=== PATIENT | female | born 1935 | race Caucasian/White ===

== ENCOUNTER 2017-01-13 11:28 | Emergency (ER) | payer MEDICARE, BC ==
[~2017-01-13] VITALS: Ht 180.3 cm; Wt 70.0 kg
[~2017-01-13 11:28] MED LIST: ACET500T67 PO; AMIT10TA92 PO; ASPI-558 PO; CALC-494 PO; CHOL10003 PO; FAMO20TA8 PO; LACT1CAP67 PO; LATA2.5D7 BOTH EYES; MESA800T PO; MULT-934 PO; PROP20TA7 PO; SERT50TA12 PO; [UNRECOGNIZED DRUG - CODE] PO
[2017-01-13 11:30] VITALS: Ht 180.3 cm; Wt 70.0 kg
--- NOTE | 2017-01-13 11:32 | NUR ---
PROVIDER DR PAULSON IN ROOM. PATIENT REMOVED FROM SPINE USING APPROPRIATE LOG-ROLLING TECHNIQUE USING 3 PEOPLE. C COLLAR LEFT IN PLACE.
[2017-01-13] MEDS ORDERED: CLOB15OI3 TOP (11:49)
--- NOTE | 2017-01-13 12:27 | NUR ---
BACK FROM CT THIS RN ACCOMPANYING.
--- NOTE | 2017-01-13 12:39 | DI ---
Indication: ITS.REASON: Trauma / struck head/ unknown if lost consciousness PROCEDURE: CT HEAD W/O CONTRAST: Encounter: Initial Comparison: December 09, 2013 Technique: Axial CT images through the head were performed without contrast. Iterative Reconstruction dose reducing technique was utilized. FINDINGS: Atrophy. The ventricles are unchanged. There is no evidence of acute intracranial hemorrhage, midline displacement, or mass effect. There are scattered areas of low attenuation in the white matter which most likely represent changes of chronic microvascular ischemia. The CT attenuation of the brain parenchyma is otherwise normal within the cerebellum, brain stem, and cerebral hemispheres. The tympanic cavities and mastoid air cells are free of appreciable disease. There are no definite fractures of the skull base, calvarium, or visualized portion of the midface. IMPRESSION: No CT evidence of acute traumatic intracranial injury. .
--- NOTE | 2017-01-13 12:43 | DI ---
Indication: ITS.REASON: trauma / neck pain PROCEDURE: CT CERVICAL SPINE W/O CONTRAST: Encounter: Initial Comparison: CT chest dated November 26, 2008 Technique: Axial CT images through the cervical spine were performed without contrast. Coronal and sagittal reformatted images were also obtained. Automated Exposure Control and Iterative Reconstruction dose reducing techniques were utilized. FINDINGS: The alignment of the cervical spine is normal. Multilevel degenerative changes are present. There is no evidence of acute fracture or subluxation of the cervical spine. The atlantoaxial articulation, dens, and upper cervical spine demonstrate no subluxation. Benign nodule left upper lobe, stable since 2008. Bilateral apical pleural thickening and scarring. IMPRESSION: No acute traumatic abnormality of the cervical spine. .
--- NOTE | 2017-01-13 12:46 | DI ---
Indication: ITS.REASON: trauma / thoracic pain PROCEDURE: CT THORACIC SPINE W/O CONTRAST: Encounter: Initial Comparison: CT chest dated November 2008 Technique: Axial noncontrast CT imaging of the thoracic spine was performed with coronal and sagittal two-dimensional reformats. Automated Exposure Control and Iterative Reconstruction dose reducing techniques were utilized. FINDINGS: Alignment of the thoracic spine is normal for the patient's age. There are minimal, age appropriate, degenerative changes within the intervertebral disk and facet joints in the thoracic spine. No fractures are evident in the thoracic spine. The vertebral bodies and facet joints are normally aligned. There is no evidence of significant spinal stenosis, foraminal compromise, epidural hematoma, or significant disk herniation. Stable benign left upper lobe pulmonary nodule. IMPRESSION: No acute traumatic abnormality of the thoracic spine. .
--- NOTE | 2017-01-13 12:48 | NUR ---
C COLLAR TAKEN OFF PER DR PAULSON. C SPINE CLEAR. CALLED XRAY.
--- NOTE | 2017-01-13 12:48 | ERPDOC ---
Departure Disposition Decision Date: Jan 13, 2017 Disposition Decision Time: 14:49 Disposition: 01 DISCHARGED HOME, SELF-CARE Impression Impression Impression: Primary Impression: Fracture, humerus, neck Encounter type: initial encounter Fracture type: closed Laterality: left Qualified Codes: S42.212A - Unspecified displaced fracture of surgical neck of left humerus, initial encounter for closed fracture Severity: Moderate Condition: Improved Seen By: Physician only Referrals: LORY FERNANDEZ MD (Family) INÉS LIRIANO MD Call today or Tomorrow, Ask for [facility] Patient Instructions: Proximal Humerus Fracture (ED) Problems/Meds/Labs Reviewed?: Yes Medications reviewed and manag: Yes Follow up care ordered?: Yes Mental Status: Alert, Oriented Scripts Ondansetron (Zofran Odt) 4 Mg Tab.rapdis 4 MG PO Q4-6H for NAUSEA, #12 TAB 0 Refills Oral Disintegrating Tablet Prov: MAWXELL PAULSON 01/13/17 Oxycodone HCl/Acetaminophen (Percocet 5-325 mg Tablet) 5-325 Tablet 1-2 TAB PO Q4-6H Y for PAIN, #20 TAB 0 Refills Take 1 tablet, by mouth, every 4 hours as needed for pain. Prov: MAXWELL PAULSON 01/13/17 HPI - Fall/Injury General Chief Complaint: Fall Stated Complaint: FELL, L SHOULDER PAIN Time Seen by Provider: 11:41 Source: patient (Patient apparently fell from a treadmill, striking her head and left shoulder. Patient is unsure if she lost conscousness, but complains of Head, Neck, Thoracic, and Left shoulder pain. No obvious trauma is noted.) Exam Limitations: no limitations HPI - Fall/Injury Occurred At: home Onset: Changing over time Duration: 1-3 hrs Pain Scale: Now & Worst: 5/10 Severity: mild Injuries/Pain Location: head, neck, upper extremity, back Context: slipped Loss of Consciousness: unsure Modifying Factors: IMPROVES WITH: immobilization, rest, WORSE WITH: movement Associated Symptoms: confusion (Initially, but has resolved), DENIES: abdominal pain, chest pain, dizziness, headache, lightheadedness, muscle spasms , nausea/vomiting, neck pain, ringing in ears, seizures, shortness of breath, slurred speech, trouble walking, vision changes Hx of Similar Symptoms: No Allergies: Coded Allergies: metoclopramide (Verified Allergy, Intermediate, WEAKNESS, 01/13/17) weak, shaking, dyspnea, chest tightness codeine (Verified Allergy, Mild, DIZZINESS, 01/13/17) prednisone (Verified Allergy, Mild, NAUSEA, SICK FEELING, 01/13/17) ceftriaxone sodium (Verified Allergy, Unknown, 01/13/17) Past History Patient Surgical History Appy Tonsillectomy heart Cath Past Medical History Metabolic: cancer, hypercholesterolemia, hypertension ENMT: sinusitis Cardiac: CAD, [place] Respiratory: pneumonia GI: GERD, ulcerative colitis Neurological: headaches Musculoskeletal: neck pain Psychological: anxiety, depression Surgical History General: appendix, tonsils Cardiac: cardiac cath Family History Family PMH: FOUND: CHF, CVA, [place], hypertension Vaccines Hx Influenza Vaccination: Yes (Jul 2016) Hx Pneumococcal Vaccination: Yes (02/23/[address] FERNANDEZ'S OFFICE) Social History Smoking Status: Unknown if ever smoked Does patient use chewing tobac: No Second Hand Exposure: No Substance Use Type: does not use Alcohol Intake: none Marital Status: Housing: house Service: No Current Occupational Status: retired Occupational Hazard: No Advance Directives: Yes Full Code Record Review Pertinent history updated: Yes Review of Systems Constitutional Constitutional: DENIES: chills, fever Eyes Lids/Accessories: DENIES: erythema, swelling ENMT Ears: DENIES: erythema, pain Balance: DENIES: ataxia, vertigo Sinuses: DENIES: congestion, rhinorrhea Mouth/Throat: DENIES: sore throat Cardiovascular Cardiac: DENIES: chest pain, dyspnea on exertion, orthopnea Rhythm/Rate: DENIES: tachycardia Pulmonary Respiratory: DENIES: cough, dyspnea, sputum GI Upper Abdomen: DENIES: nausea, pain, vomiting Lower Abdomen: DENIES: constipation, diarrhea, pain General: DENIES: dysuria Musculoskeletal General: joint pain, pain, see HPI, tenderness, DENIES: cramps, joint swelling , weakness Integumentary Skin: DENIES: color change, itching, rash Neurological General: DENIES: ataxia, change in strength, headache, numbness, poor coordination, seizures, syncope, vertigo, weakness Psychiatric Psychiatric: DENIES: anxiety, depression, nervousness Hematologic/Lymphatic Hematologic/Lymphatic: DENIES: anemia Allergic/Immunological Allergic/Immunoligical: DENIES: sneezing All other Systems All Other Systems: Reviewed and Negative Physical Exam General General Nourishment: well nourished, well developed, appears stated age, adult General Body Habitus: well groomed Vitals and Pain First Documented Vital Signs Date Time Temp Pulse Resp B/P Pulse Ox O2 Delivery O2 Flow Rate FiO2 01/13/17 11:30 98.2 70 16 163/74 99 Room Air Weight: Kilograms: 70.000 Height (feet): 5 Height (inches): 11.00 Triage Pain Scale: RN VS reviewed by Provider: Yes Eyes (brief) Eyes Brief: found: EOMI, PERRL ENMT (brief) ENMT Brief: FOUND: TM clear, TM good light reflex, mucosa moist, NOT FOUND: pharnyx erythema Neck (brief) Neck: FOUND: tenderness, trachea midline, NOT FOUND: adenopathy, tracheal deviation Respiratory (brief) Respiratory: FOUND: clear all canales, equal bilaterally Cardiovascular (brief) Cardiac: FOUND: regular rate, regular rhythm Capillary Refill: <2 sec Pulses: all distal extremities, equal, strong Abdomen (brief) Abdominal Brief: FOUND: bowel normo active x4, soft, NOT FOUND: distended, tender Lymphatic (brief) Lymphatic Brief: NOT FOUND: adenopathy Musculoskeletal (brief) Musculoskeletal Brief: FOUND: other (Refer to HPI), tenderness, NOT FOUND: spasm Integumentary (brief) Integumentary Brief: FOUND: pink, warm Neurologic (brief) Neurological Brief: FOUND: CN w/o gross def to obs, gait w/o gross def to obs, motor-no gross deficits, sensory-no gross deficits, NOT FOUND: ataxia Psychiatric (brief) Psychiatric Brief: FOUND: alert, attentive, normal affect, oriented Differential Diagnoses Considering: Concussion, Contusion, Epidural Hematoma, Fracture, Sprain, Strain , Subdural Hematoma, Other Progress Results/Orders Orders Procedure Category Date Status Time Ct Head W/O Contrast CT 01/13/[address] Cervical Spine W/O CT 01/13/[address] Thoracic Spine W/O CT 01/13/17 Resulted Contrast Shoulder Left 2-3 RAD 01/13/17 Resulted Views Chest 1 View RAD 01/13/17 Resulted Ketorolac (Toradol) PHA 01/13/17 Complete 13:30 Ct Upper Extremity Lt CT 01/13/17 Resulted W/O Cont Fentanyl (Fentanyl) PHA 01/13/17 Complete 14:15 Ondansetron Inj PHA 01/13/17 Complete (Zofran) 14:15 Fentanyl (Fentanyl) PHA 01/13/17 Complete 15:00 Medications Current ED Medications Ketorolac Tromethamine (Toradol) 15 mg O ONCE IV Last administered on 13:23; Start 01/13/17 at 13:30; Stop 01/13/17 at 13:31; Status DC Fentanyl (Fentanyl) 25 mcg O ONCE IV Last administered on 01/13/17 14:06; Start 01/13/17 at 14:15; Stop 01/13/17 at 14:16; Status DC Ondansetron HCl (Zofran) 4 mg O ONCE IV Last administered on 01/13/17 14:06; Start 01/13/17 at 14:15; Stop 01/13/17 at 14:16; Status DC Fentanyl (Fentanyl) 25 mcg O ONCE IV Last administered on 01/13/17 14:49; Start 01/13/17 at 15:00; Stop 01/13/17 at 15:01; Status DC Progress Progress Patient initially refusing pain medications. Xray Xray #1: Reason for Exam: Trauma Xray: CXR Portable Interpretation: Normal, Interpreted by Me (Chest Normal, but the patient has Left Humeral Neck Fracture) Xray #2: Reason for Exam: Trauma/Left shoulder pain Xray: Shoulder L Interpretation: Abnormal, Interpreted by Me (Humeral Neck Fracture) CT CT #1: Reason for Exam: Trauma / fell / Struck Head CT: Head no contrast Interpretation: Normal, Reviewed Written Report CT #2: Reason for Exam: Fell/ Neck Pain CT: C-Spine no contrast Interpretation: Normal, Reviewed Written Report CT #3: Reason for Exam: Fell/ Thoracic Pain CT: Other (T-Spine without contrast) Interpretation: Normal, Reviewed Written Report MAXWELL PAULSON DO Jan 13, 2017 12:48
--- NOTE | 2017-01-13 12:51 | NUR ---
TO XRAY PER CART.
--- NOTE | 2017-01-13 13:10 | NUR ---
BACK FROM XRAY
[2017-01-13] MEDS ORDERED: KETOROLAC 30mg/ml INJECTION IV ONE (13:30)
--- NOTE | 2017-01-13 13:39 | DI ---
Indication: ITS.REASON: trauma, left shoulder pain PROCEDURE: SHOULDER LEFT 3 VIEWS: Encounter: Initial Comparison: None Findings: There is a mildly displaced fracture of the surgical neck of the humerus with a fracture line possibly extending into the greater tuberosity. No additional acute fracture or dislocation is seen. The acromioclavicular joint space is maintained. Impression: Closed posttraumatic fracture of the surgical neck left humerus with possible extension to the greater tuberosity. .
--- NOTE | 2017-01-13 13:41 | DI ---
Indication: ITS.REASON: Pre-surgical / Left Humerus Fracture PROCEDURE: CHEST 1 VIEW: Encounter: Initial Comparison: August 23, 2016 Findings: The lungs are stable in appearance without new focal airspace consolidation. There is no pleural effusion or pneumothorax. The heart size, pulmonary vascularity and mediastinal contours are unchanged. Left humeral neck fracture better seen on the dedicated shoulder radiographs. IMPRESSION: No acute cardiopulmonary disease. .
--- NOTE | 2017-01-13 13:45 | NUR ---
PROVIDER DR PAULSON IN TO SEE PATIENT.
--- NOTE | 2017-01-13 13:46 | NUR ---
PROVIDER DR PAULSON IN TO SEE PATIENT.
--- NOTE | 2017-01-13 14:00 | NUR ---
TO CT PER CART. Addendum: 01/13/17 at 1416 by LEN CORRECTION: PATIENT WENT TO CT AT 1410
[2017-01-13] MEDS ORDERED: ONDANSETRON 4mg/2ml INJECTION IV ONE (14:15)
[2017-01-13] MEDS ORDERED: FENTANYL 100mcg/2ml INJECTION IV ONE ×2 (14:15→15:00)
--- NOTE | 2017-01-13 14:20 | NUR ---
BACK FROM CT
--- NOTE | 2017-01-13 14:35 | DI ---
Indication: ITS.REASON: Humeral neck fracture PROCEDURE: CT UPPER EXTREMITY LT W/O CONT: Encounter: Initial Comparison: Left shoulder radiographs from today and CT of the chest dated November 26, 2008 Technique: Axial noncontrast CT imaging through the left shoulder and proximal humerus was performed with coronal and sagittal two-dimensional reformats. Automated Exposure Control and Iterative Reconstruction dose reducing techniques were utilized. Findings: There is redemonstration of the mildly displaced fracture of the surgical neck. This is impacted. There is a small essentially nondisplaced fracture line extending into the greater tuberosity of the humerus. Minimal posterior rotation of the humeral head noted. There is overriding of the fracture fragments by 2.5 cm. No additional acute fracture. No dislocation. The visualized lung canales show a nonspecific groundglass type nodule in the left upper lobe measuring 7 mm in size. This was not present on the prior CT scan. No loose fragments seen in the glenohumeral joint space. Impression: 1. Impacted surgical neck left humeral fracture with a fracture line extending through the greater tuberosity. 2. 7 mm left upper lobe groundglass pulmonary nodule. Recommend follow-up noncontrast chest CT in 6-12 months to evaluate for stability. .
[2017-01-13] MEDS ORDERED: ONDA4TAB7 PO (14:52)
[2017-01-13] MEDS ORDERED: OXYC1TAB8 PO (14:52)
[2017-01-13 15:25] VITALS: BP 155/60; PULSE 70; RESP 16; TEMP 98; O2SAT 98
== END 2017-01-13 15:25 | disposition home or self-care (01) ==
LOC: ED 11:28
DX: S42.212A Unspecified displaced fracture of surgical neck of left humerus, initial encounter for closed fracture (principal); R51 Headache; M54.2 Cervicalgia; M54.6 Pain in thoracic spine; W17.89XA Other fall from one level to another, initial encounter; Y93.A1 Activity, exercise machines primarily for cardiorespiratory conditioning; Y92.009 Unspecified place in unspecified non-institutional (private) residence as the place of occurrence of the external cause; Y99.8 Other external cause status
CPT/HCPCS: 70450; 71010; 72125; 72128; 73030; 73200; 96374; 96375; 96376; 99284; J1885; J2405; J3010; L3650